=== PATIENT | female | born 1975 | race Caucasian/White ===

== ENCOUNTER 2023-10-20 06:24 | Day surgery (SDC) | payer OTHER, SELFPAY ==
[2023-10-14 07:06] VITALS: BMI 26.0
[2023-10-14 08:47] LABS: % Basophils 1.1 % (0-2); % Eosinophils 2.9 % (0-6); % Immature Granulocytes 0.2 % (0-0.5); % Lymphocytes 35.2 % (20.5-51.1); % Monocytes 8.3 % (1.7-9.3); % Neutrophils 52.3 % (42.2-75.2); Absolute Basophils 0.1 10^3/uL (0-0.2); Absolute Eosinophils 0.2 10^3/uL (0-0.7); Absolute Lymphocytes 2.3 10^3/uL (1.2-3.4); Absolute Monocytes 0.5 10^3/uL (0.1-0.6); Absolute Neutrophils 3.4 10^3/uL (1.4-6.5); Hematocrit 38.8 % (37.0-47.0); Hemoglobin 12.7 g/dL (12.0-16.0); Mean Corp Hgb Conc. 32.7 g/dL (33.0-37.0); Mean Corpuscular Hgb 30.4 pg (27.0-31.0); Mean Corpuscular Volume 92.8 fL (81.0-99.0); Mean Platelet Volume 10.1 fL (7.4-10.4); Nucleated Red Blood Cells % 0 %; Platelet Count 312 10^3/uL (130-400); Red Blood Cell Count 4.18 10^6/uL (4.20-5.40); White Blood Cell Count 6.5 10^3/uL (4.8-10.8)
[2023-10-14 09:30] LABS: Blood Urea Nitrogen 16 mg/dl (7-17); Calcium 8.9 mg/dl (8.4-10.2); Carbon Dioxide 25 mmol/L (22-30); Chloride 105 mmol/L (98-107); Estimated Creatinine Clearance 109 ml/min; Glucose 87 mg/dl (70-99); Potassium 4.7 mmol/L (3.5-5.1); Sodium 135 mmol/L (135-145); eGFR > 60.00
[2023-10-14 09:46] LABS: Beta HCG Quantitative < 2.39 mIU/ml
[2023-10-20] VITALS (9 sets, daily range): BP systolic 124–148; BP diastolic 83–100; BMI 26.0
[2023-10-20] MEDS: NORMOSOL-R 1000 IV (07:53)
--- NOTE | 2023-10-20 09:27 | W.IMMPOSTOP ---
Surgical Immed Post Op Note
-
Primary Surgeon: Gemini Moses DO
Assisting Surgeon: none
Pre-op Diagnosis: Menorrhagia, endometrial polyp
Post-op Diagnosis: same
Procedure Performed: hysteroscopy D&C polypectomy
Anesthesia Type: LMA Dr. Parisi
Specimen / Cultures: 1. endocervical curettings 2. endometrial curettings and polyp (resected)
Estimated Blood Loss: <5ml
Fluid deficit: 45ml NSS
Complications: none
Operative Findings: Uterus sounded to 8.5 cm, bilateral tubal ostia seen. Polypoid structure seen in endometrial cavity.
counts correct times 2.
Stable to recovery.
== END 2023-10-20 10:50 | disposition home or self-care (01) ==
LOC: SDS 06:24
PROVIDERS: ATTENDING PHYSICIAN Obstetrics & Gynecology; FAMILY PHYSICIAN Family Medicine
DX: N84.0 Polyp of corpus uteri (principal); N92.0 Excessive and frequent menstruation with regular cycle
CPT/HCPCS: 58558; 88305; 36415; 80048; 84702; 85025; 86850; 86900; 86901

== ENCOUNTER → 2024-03-03 06:56 | Outpatient (REF) | payer OTHER, SELFPAY | LOC: WDC 06:56 | PROVIDERS: ATTENDING PHYSICIAN Obstetrics & Gynecology; FAMILY PHYSICIAN Family Medicine | DX: Z12.31 Encounter for screening mammogram for malignant neoplasm of breast (principal) | CPT/HCPCS: 77063; 77067 ==

== ENCOUNTER → 2025-03-15 07:03 | Outpatient (REF) | payer OTHER, SELFPAY | LOC: WDC 07:03 | PROVIDERS: ATTENDING PHYSICIAN Obstetrics & Gynecology | DX: Z01.419 Encounter for gynecological examination (general) (routine) without abnormal findings (principal); Z12.31 Encounter for screening mammogram for malignant neoplasm of breast | CPT/HCPCS: 77063; 77067 ==

== ENCOUNTER → 2025-03-28 09:16 | Outpatient (REF) | payer OTHER, SELFPAY | LOC: WDC 09:16 | PROVIDERS: ATTENDING PHYSICIAN Obstetrics & Gynecology | DX: R92.8 Other abnormal and inconclusive findings on diagnostic imaging of breast (principal) | CPT/HCPCS: 76642 ==